=== PATIENT | male | born 1950 | race Two or more races ===

== ENCOUNTER 2017-10-03 11:11 | Emergency (ER) | payer SELFPAY ==
[2017-10-03 11:28] VITALS: TEMP 98.2; BMI 53.9
--- NOTE | 2017-10-03 12:11 | PDOC ---
History of Present Illness - General History Source: Patient Exam Limitations: No Limitations - History of Present Illness Initial Comments: 10/03/17 13:00 The patient is a 67 year old male, with a significant past medical history of hypertension and headaches, who presents to the emergency department with, one week of a headache and right sided abdominal pain. He reports stress induced intermittent right sided headache and right sided abdominal pain for one year. As per patient, yesterday his headache was unbearable, however, he was unable to come into the ED. He describes his headache to be a band-like, frontal tension headache. He reports occasional dysuria. He denies any recent fevers, chills, headache or dizziness. He denies any recent nausea, vomit, diarrhea or constipation. He denies any recent chest pain or shortness of breath. He denies any recent frequency, urgency or hematuria. Allergies: NKA Past surgical history: None reported. Social History: Nonsmoker. Denies EtOH use and recreational drug use. Primary Care Physician: Dr. Mckenzie Olsen <Marli Ruano - Last Filed: 10/03/17 13:00> <Bindu Davis - Last Filed: 10/03/17 14:16> - General Chief Complaint: Pain, Acute Stated Complaint: HEADACHE, ABD PAIN Time Seen by Provider: 10/03/17 12:11 Past History <Marli Ruano - Last Filed: 10/03/17 13:00> - Past Medical History COPD: No Diabetes: Yes HTN: Yes Hypercholesterolemia: Yes - Suicide/Smoking/Psychosocial Hx Smoking History: Current some day smoker Have you smoked in the past 12 months: Yes Information on smoking cessation initiated: No <Bindu Davis - Last Filed: 10/03/17 14:16> - Past Medical History Allergies/Adverse Reactions: Allergies Allergy/AdvReac Type Severity Reaction Status Date / Time No Known Allergies Allergy Verified 10/03/17 11:24 Review of Systems - Review of Systems Able to Perform ROS?: Yes Comments:: 10/03/17 13:00 GENERAL/CONSTITUTIONAL: No fever or chills. No weakness. HEAD, EYES, EARS, NOSE AND THROAT: No change in vision. No ear pain or discharge. No sore throat. GASTROINTESTINAL: No nausea, vomiting, diarrhea or constipation. GENITOURINARY: No dysuria, frequency, or change in urination. CARDIOVASCULAR: No chest pain or shortness of breath. RESPIRATORY: No cough, wheezing, or hemoptysis. MUSCULOSKELETAL: +Right sided abdominal pain. No joint swelling or pain. No neck or back pain. SKIN: No rash NEUROLOGIC: +Frontal headache. No vertigo, loss of consciousness, or change in strength/sensation. ENDOCRINE: No increased thirst. No abnormal weight change. HEMATOLOGIC/LYMPHATIC: No anemia, easy bleeding, or history of blood clots. ALLERGIC/IMMUNOLOGIC: No hives or skin allergy. All Other Systems: Reviewed and Negative <Marli Ruano - Last Filed: 10/03/17 13:00> *Physical Exam - Vital Signs Last Vital Signs Temp Pulse Resp BP Pulse Ox 98.2 F 61 19 112/56 96 10/03/17 11:24 10/03/17 11:24 10/03/17 11:24 10/03/17 11:24 10/03/17 11:24 - Physical Exam Comments: 10/03/17 13:01 Constitutional: Awake, alert, oriented. No acute distress. Head: Normocephalic. Atraumatic Eyes: PERRL. EOMI. Conjunctivae are not pale. ENT: Mucous membranes are moist and intact. Posterior pharynx without exudates or erythema. Uvula midline. Neck: Supple. Full ROM. No lymphadenopathy. Cardiovascular: Regular rate. Regular rhythm. S1, S2 regular. Distal pulses are 2+ and symmetric. Pulmonary/Chest: No evidence of respiratory distress. Clear to auscultation bilaterally No wheezing, rales or rhonchi. Abdominal: + Right upper quadrant tenderness. +Mild suprapubic tenderness. Soft and non-distended. No rebound, guarding or rigidity. No organomegaly. No palpable masses. Good bowel sounds. Back: No CVA tenderness. Musculoskeletal: No edema. No cyanosis. No clubbing. Full range of motion in all extremities. Nocalf tenderness. Radial/pedal pulses are intact and 2+ bilaterally Skin: Skin is warm and dry. No petechiae. No purpura. Neurological: Alert and oriented to person, place, and time. Cranial nerves II -XII are grossly intact. Normal speech. Strength is grossly symmetric. No sensory deficits. Psychiatric: Good eye contact. Normal interaction, affect and behavior. <Marli Ruano - Last Filed: 10/03/17 13:00> - Vital Signs Last Vital Signs Temp Pulse Resp BP Pulse Ox 98.2 F 61 19 112/56 96 10/03/17 11:24 10/03/17 11:24 10/03/17 11:24 10/03/17 11:24 10/03/17 11:24 <Bindu Davis - Last Filed: 10/03/17 14:16> ED Treatment Course - Medications Given in the ED: ED Medications Discontinued Medications Generic Name Dose Route Start Last Admin Trade Name Mic PRN Reason Stop Dose Admin Diphenhydramine HCl 12.5 mg 10/03/17 12:21 10/03/17 12:48 Benadryl Injection - IVPUSH 10/03/17 12:22 12.5 mg ONCE ONE Administration Ketorolac Tromethamine 30 mg 10/03/17 12:21 10/03/17 12:48 Toradol Injection - IVPUSH 10/03/17 12:22 30 mg ONCE ONE Administration Metoclopramide HCl 10 mg 10/03/17 12:21 10/03/17 12:48 Reglan Injection - IVPUSH 10/03/17 12:22 10 mg ONCE ONE Administration Sodium Chloride 1,000 ml 10/03/17 12:21 10/03/17 12:48 Normal Saline - IV 10/03/17 12:22 1,000 ml ONCE ONE Administration <Marli Ruano - Last Filed: 10/03/17 13:00> - LABORATORY CBC & Chemistry Diagram: 10/03/17 12:45 10/03/17 12:45 <Bindu Davis - Last Filed: 10/03/17 14:16> Medical Decision Making - Medical Decision Making 10/03/17 12:26 a/p: 67yo male with hazel and abd pain -states both are intermittent and worsens when he is stressed -pt states dysuria and R flank pain -also RUQ pain -no n/v/d -band like hazel -will check labs, u/s -will give ivf hydration, reglan, benadryl -will monitor and reassess 10/03/17 14:13 re-eval: ultrasound shows gb polyp lfts wnl labs reviewed with the patient headache resolved stable for d/c to home tylenol or motrin for HAZEL if it returns answered all questions. <Bindu Davis - Last Filed: 10/03/17 14:16> *DC/Admit/Observation/Transfer - Attestations Scribe Attestion: 10/03/17 13:01 Documentation prepared by Marli Ruano, acting as medical device sales representative for Bindu Davis DO. <Marli Ruano - Last Filed: 10/03/17 13:00> - Discharge Dispostion Admit: No - Attestations Physician Attestion: 10/03/17 14:16 I, Dr. Bindu Davis DO, attest that this document has been prepared under my direction and personally reviewed by me in its entirety. I further attest, that it accurately reflects all work, treatment, procedures and medical decision -making performed by me. <Bindu Davis - Last Filed: 10/03/17 14:16> Diagnosis at time of Disposition: Headache, Flank pain - Discharge Dispostion Disposition: HOME Condition at time of disposition: Stable - Referrals Referrals: Mckenzie Olsen MD [Primary Care Provider] - - Patient Instructions Printed Discharge Instructions: DI for Headache, DI for Flank Pain Additional Instructions: Please take tylenol of ibuprofen for pain. Please make an appointment to see your PMD this week. Please return to the ED with any further complaints. - Post Discharge Activity
[2017-10-03] MEDS ORDERED: KETOROLAC TROMETHAMINE 30 MG/1 ML VIAL IVPUSH ONE (12:21)
[2017-10-03] MEDS ORDERED: METOCLOPRAMIDE HCL INJECTION 10 MG/2 ML VIAL IVPUSH ONE (12:21)
[2017-10-03] MEDS ORDERED: SODIUM CHLORIDE 0.9% 1000 ML INFUS.BAG IV ONE (12:21)
[2017-10-03] MEDS ORDERED: KETOROLAC TROMETHAMINE 30 MG/1 ML VIAL ONE (12:35)
[2017-10-03] MEDS ORDERED: METOCLOPRAMIDE HCL INJECTION 10 MG/2 ML VIAL ONE (12:35)
[2017-10-03 13:23] LABS: BASO % 0.7 % (0-2.0); EOS % 1.7 % (0-4.5); HEMATOCRIT 44.4 % (35.4-49); HEMOGLOBIN 14.8 GM/dL (11.7-16.9); LYMPH % 21.9 % (8-40); MCH 29.7 pg (25.7-33.7); MCHC 33.2 g/dl (32.0-35.9); MEAN CELL VOLUME 89.3 fl (80-96); MEAN PLT VOLUME 7.9 fl (7.5-11.1); MONO % 8.3 % (3.8-10.2); NEUT % 67.4 % (42.8-82.8); PLATELET COUNT 209 K/MM3 (134-434); RBC 4.98 M/mm3 (4.00-5.60); RDW 13.8 % (11.9-15.9); WHITE BLOOD COUNT 8.3 K/mm3 (4.0-10.0)
[2017-10-03 13:32] LABS: URINE APPEARANCE CLEAR; URINE BILIRUBIN NEGATIVE (NEGATIVE); URINE BLOOD NEGATIVE (NEGATIVE); URINE COLOR LTYELLOW; URINE GLUCOSE (UA) NEGATIVE (NEGATIVE); URINE KETONE NEGATIVE (NEGATIVE); URINE LEUK ESTERASE NEGATIVE (NEGATIVE); URINE NITRITE NEGATIVE (NEGATIVE); URINE PROTEIN NEGATIVE (NEGATIVE); URINE UROBILINOGEN NEGATIVE mg/dL (0.2-1.0)
[2017-10-03 13:45] LABS: ALBUMIN 3.5 g/dl (3.4-5.0); ANION GAP 6 (8-16); BLOOD UREA NITROGEN 19 mg/dL (7-18); CALCIUM 8.6 mg/dL (8.5-10.1); CHLORIDE 104 mmol/L (98-107); CO2 30 mmol/L (21-32); CREATININE 0.9 mg/dL (0.7-1.3); GLUCOSE,RANDOM 88 mg/dL (74-106); LIPASE 115 U/L (73-393); MAGNESIUM 2.3 mg/dL (1.8-2.4); POTASSIUM 4.4 mmol/L (3.5-5.1); SGOT/AST 15 U/L (15-37); SGPT/ALT 25 U/L (12-78); SODIUM 140 mmol/L (136-145)
[2017-10-03 13:47] LABS: ALK PHOS 89 U/L (45-117); BILIRUBIN,TOTAL 0.6 mg/dL (0.2-1.0); TOT PROT 6.8 g/dl (6.4-8.2)
[2017-10-03 14:15] VITALS: BP 122/65; PULSE 63
== END 2017-10-03 14:40 | disposition home or self-care (01) ==
LOC: JER 11:11
PROC: 3E0333Z Introduction of Anti-inflammatory into Peripheral Vein, Percutaneous Approach (ICD-10-PCS; principal; 2017-10-03)
PROC: 3E033GC Introduction of Other Therapeutic Substance into Peripheral Vein, Percutaneous Approach (ICD-10-PCS; 2017-10-03)
PROC: 3E033GC Introduction of Other Therapeutic Substance into Peripheral Vein, Percutaneous Approach (ICD-10-PCS; 2017-10-03)
DX: R51 Headache (principal); I10 Essential (primary) hypertension; E11.9 Type 2 diabetes mellitus without complications; E78.00 Pure hypercholesterolemia, unspecified
CPT/HCPCS: 36415; 76705-TC; 80053; 81003; 83690; 83735; 85025; 99285-25

== ENCOUNTER 2020-06-19 11:08 | Day surgery (SDC) | payer OTHER ==
--- OUTSIDE RECORDS SUMMARY | 2020-06-03 09:09 | XMS ---
:1950 Author Organization [facility] Care Team Providers Name Role Phone Luano, Doris Unavailable Unavailable Lufrano, Doris Unavailable Unavailable Lufrano, Doris Unavailable Unavailable Lufrano, Doris Unavailable Unavailable Lufrano, Doris Unavailable Unavailable Lufrano, Doris Unavailable Unavailable Lufrano, Doris Unavailable Unavailable Innabi, Rincon Unavailable Unavailable Innabi, Rincon Unavailable Unavailable Innabi, Rincon Unavailable Unavailable Innabi, Rincon Unavailable Unavailable Innabi, Rincon Unavailable Unavailable Innabi, Rincon Unavailable Unavailable Innabi, Rincon Unavailable Unavailable Innabi, Rincon Unavailable Unavailable Innabi, Rincon Unavailable Unavailable Innabi, Rincon Unavailable Unavailable Innabi, Rincon Unavailable Unavailable Innabi, Rincon Unavailable Unavailable Innabi, Rincon Unavailable Unavailable Innabi, Rincon Unavailable Unavailable Innabi, Rincon Unavailable Unavailable Innabi, Rincon Unavailable Unavailable Re-disclosure Warning The records that you are about to access may contain information from federally- assisted alcohol or drug abuse programs. If such information is present, then the following federally mandated warning applies: This information has been disclosed to you from records protected by federal confidentiality rules (42 CFR part 2). The federal rules prohibit you from making any further disclosure of this information unless further disclosure is expressly permitted by the written consent of the person to whom it pertains or as otherwise permitted by 42 CFR part 2. A general authorization for the release of medical or other information is NOT sufficient for this purpose. The Federal rules restrict any use of the information to criminally investigate or prosecute any alcohol or drug abuse patient.The records that you are about to access may contain highly sensitive health information, the redisclosure of which is protected by Article 27-F of the [facility] Public Health law. If you continue you may haveaccess to information: Regarding HIV / AIDS; Provided by facilities licensed or operated by the [facility] Office of Mental Health; or Provided by the [facility] Office for People With Developmental Disabilities. If such information is present, then the following [facility] mandated warning applies: This information has been disclosed to you from confidential records which are protected by state law. State law prohibits you from making any further disclosure of this information without the specific written consent of the person to whom it pertains, or as otherwise permitted by law. Any unauthorized further disclosure in violation of state law may result in a fine or senior care sentence or both. A general authorization for the release of medical or other information is NOT sufficient authorization for further disclosure. Encounters Encounter Providers Location Date Indications Data Source(s ) Attender: Doris 05/27/2020 [facility] (S [facility] 12:00:00 AM EDT Medical, PC) Office Outpatient Attender: Mckenzie Miller 05/23/2019 09:05:00 AM [facility] PrettyAdmitter: Mckenzie JOHNSON [facility] InnabiReferrer: Mckenzie Olsen Medications Medication Brand Start Product Dose Route Administrative Pharmacy [facility] Indications Reaction Description Data Name Date Form Instructions Instructions Source(s) Propranolol PROPRA 05/27/ complet PROPRA NOLOL [facility] (St Hydrochlori NOLOL: 2019 ed [facility] de 20 MG [id number] 12:00: Medical , Oral Tablet 00 AM PC) PROPRANOLOL EDT :[id number] SUPREP 05/27/ LIQUID 1 complet SUPREP HEIDY L [facility] (St BOWEL PREP 2019 ed PREP KIT [facility] KIT:[id number] 12:00: Medica l, 00 AM PC) EDT Tamsulosin TAMSUL 05/27/ complet TAMSULO SIN [facility] (St hydrochlori OSIN:8 2019 ed [facility] de 0.4 MG [id number] 12:00: Medical , Oral 00 AM PC) Capsule EDT TAMSULOSIN: [id number] Dicyclomine BENTYL 05/27/ CAPSULE 60 complet CHELO TYL [facility] (St Hydrochlori :27506 2019 ed [facility] de 10 MG 3 12:00: Medical, Oral 00 AM PC) Capsule EDT [Bentyl] BENTYL:9910 63 Hydrochloro HYDROC complet HYDROC HLOROT [facility] (St thiazide HLOROT 2019 ed HIAZIDE-ALEX [facility] 12.5 MG / HIAZID 12:00: NOPRIL Medi ale, Lisinopril E-ALEX 00 AM PC) 10 MG Oral NOPRIL EDT Tablet :20642 HYDROCHLORO 5 THIAZIDE-LI SINOPRIL:[id number] Insurance Providers Payer name Policy type Policy ID Covered Covered green party's Policy P selena / Coverage green party ID relationship to Crain Inf ormation type crain HIP MEDICARE [facility] [id number] SP [id number] 01 [facility] [id number] [facility] [id number] MEDICARE 01 Problems, Conditions, and Diagnoses Code Display Name Description Problem Type Effective Dates Data Source(s) R10.9 Unspecified UNSPECIFIED Problem 05/27/2020 [facility] (St abdominal pain ABDOMINAL PAIN 12:00:00 AM EDT [facility], ) M54.5 Low back pain LOW BACK PAIN Diagnosis 05/23/2019 [facility] 09:05:00 AM EDT Medical C enter Surgeries/Procedures Procedure Description Date Indications Data Source(s) Documentation of current 05/27/2020 [facility] ([facility] (procedure) 12:00:00 AM EDT [facility]) OFFICE CONSULTATION 05/27/2020 [facility] ( [facility] NEW/ESTAB PATIENT 40 MIN 12:00:00 AM EDT Medical, PC) Results ID Date Data Source [id number] 01/12/2020 10:30:00 AM EDT [facility] Name Value Range Interpretation Description Data Sup porting Code Source(s) Document(s ) SARS [facility] CORONAVIRUS 2 RNA This lab was ordered by [facility] and reported by [facility]. Procedure Social History Code Duration Value Status Description Data Source(s ) Smoking 05/27/2020 ETOH and tobacco completed ETOH and tobacco ME [facility] (St 12:00:00 AM EDT used sometimes used sometimes [facility], denied illicit denied illicit PC) drgu used drgu used Smoking 05/27/2020 Unknown if ever completed Unknown if ever MEDG EN (St 12:00:00 AM EDT smoked smoked [facility] ) Vital Signs ID Date Data Source UNK Name Value Range Interpretation Code Description Data Source(s) Heart rate 60 /min 60 /min [facility] ([facility] , ) Inhaled oxygen 97 % 97 % [facility] ([facility], ) Body mass index 25.3 kg/m2 25.3 kg/m2 [facility] (S t (BMI) [Ratio] [facility]) Diastolic blood 60 mm[Hg] 60 mm[Hg] [facility] (S t pressure [facility]) Systolic blood 110 mm[Hg] 110 mm[Hg] [facility] ([facility]) Body weight 134 lb 134 lb [facility] ([facility]) Body height 61 in 61 in [facility] ([facility])
--- OUTSIDE RECORDS SUMMARY | 2020-06-19 11:14 | XMS ---
:1950 Author Organization [facility] Care Team Providers Name Role Phone Lufrano, Doris Unavailable Unavailable Lufrano, Doris Unavailable [...] is protected by Article 27-F of the [facility] Public Health law. If you continue you may haveaccess to information: Regarding HIV / AIDS; Provided by facilities licensed or operated by the [facility] Office of Mental Health; or Provided by the [facility] Office for People With Developmental Disabilities. If such information is present, then the following [facility] mandated warning applies: This information has been [...] law may result in a fine or care home sentence or both. A general authorization for the release of medical or other information is NOT sufficient authorization for further disclosure. Encounters Encounter Providers Location Date Indications Data Source(s ) Attender: Doris 05/27/2020 [facility] ([facility] 12:00:00 AM EDT Medical, PC) Office Outpatient Attender: Mckenzie Miller 05/23/2019 09:05:00 AM [facility] PrettyAdmitter: Mckenzie JOHNSON [facility] InnabiReferrer: Mckenzie Olsen Medications Medication Brand Start Product Dose Route Administrative Pharmacy [facility] Indications Reaction Description Data Name Date Form Instructions Instructions Source(s) Propranolol PROPRA 05/27/ complet PROPRA NOLOL [facility] (St Hydrochlori NOLOL: 2019 ed [facility] de 20 MG [id number] 12:00: Medical , Oral Tablet 00 AM PC) PROPRANOLOL EDT :[id number] SUPREP 05/27/ LIQUID 1 complet SUPREP HEIDY L [facility] (St BOWEL PREP 2019 ed PREP KIT [facility] KIT:[id number] 12:00: Medica l, 00 AM PC) EDT Tamsulosin TAMSUL 05/27/ complet TAMSULO SIN [facility] (St hydrochlori OSIN:2019 ed [facility] de 0.4 MG 13224 12:00: Medical , Oral 00 AM PC) Capsule EDT TAMSULOSIN: 755505 Dicyclomine BENTYL 05/27/ CAPSULE 60 complet CHELO TYL [facility] (St Hydrochlori :77933 2019 ed [facility] de 10 MG 3 12:00: Medical, Oral 00 AM PC) Capsule EDT [Bentyl] BENTYL:9910 63 Hydrochloro HYDROC complet HYDROC HLOROT [facility] (St thiazide HLOROT 2019 ed HIAZIDE-ALEX [facility] 12.5 MG / HIAZID 12:00: NOPRIL Medi ale, Lisinopril E-ALEX 00 AM PC) 10 MG Oral NOPRIL EDT Tablet : HYDROCHLORO 5 THIAZIDE-LI SINOPRIL:[id number] Insurance Providers Payer name Policy type Policy ID Covered Covered democrat's Policy P selena / Coverage democrat ID relationship to Crain Inf ormation type crain HIP MEDICARE VIP [id number] SP [id number] HIP MEDICARE VIP [id number] SP [id number] 01 [facility] [id number] [facility] [id number] MEDICARE 01 Problems, Conditions, and Diagnoses Code Display Name Description Problem Type Effective Dates Data Source(s) R10.9 Unspecified UNSPECIFIED Problem 05/27/2020 [facility] (St abdominal pain ABDOMINAL PAIN 12:00:00 AM EDT [facility], ) M54.5 Low back pain LOW BACK PAIN Diagnosis 05/23/2019 [facility] 09:05:00 AM EDT Medical C enter Surgeries/Procedures Procedure Description Date Indications Data Source(s) Documentation of current 05/27/2020 [facility] ([facility] (procedure) 12:00:00 AM EDT [facility], ) OFFICE CONSULTATION 05/27/2020 [facility] ( [facility] NEW/ESTAB PATIENT 40 MIN 12:00:00 AM EDT Medical, ) Results ID Date Data Source [id number] 06/15/2020 08:40:00 AM EDT [facility] Name Value Range Interpretation Description Data Sup porting Code Source(s) Document(s ) SARS [facility] coronavirus 2 RNA This lab was ordered by NEHA bravo [facility] and reported by [facility]. ID Date Data Source [id number] 01/12/2020 10:30:00 AM EDT [facility] Name Value Range Interpretation Description Data Sup porting Code Source(s) Document(s ) SARS [facility] CORONAVIRUS 2 RNA This lab was ordered by [facility] and reported by [facility]. Procedure Social History Code Duration Value Status Description Data Source(s ) Smoking 05/27/2020 ETOH and tobacco completed ETOH and tobacco ME [facility] (St 12:00:00 AM EDT used sometimes used sometimes [facility], denied illicit denied illicit ) drgu used drgu used Smoking 05/27/2020 Unknown if ever completed Unknown if ever MEDG EN (St 12:00:00 AM EDT smoked smoked [facility], ) Vital Signs ID Date Data Source UNK Name Value Range Interpretation Code Description Data Source(s) Heart rate 60 /min 60 /min [facility] ([facility] , ) Inhaled oxygen 97 % 97 % [facility] ([facility], ) Body mass index 25.3 kg/m2 25.3 kg/m2 [facility] (S t (BMI) [Ratio] [facility]) Diastolic blood 60 mm[Hg] 60 mm[Hg] [facility] (S t pressure [facility]) Systolic blood 110 mm[Hg] 110 mm[Hg] [facility] ([facility]) Body weight 134 lb 134 lb [facility] ([facility]) Body height 61 in 61 in [employer] ([facility])
[2020-06-19 11:32] VITALS: BMI 26.2
[2020-06-19 13:02] VITALS: TEMP 97.6
[2020-06-19 13:14] VITALS: BP 100/72; PULSE 83
== END 2020-06-19 13:45 | disposition home or self-care (01) ==
LOC: FASU-ENDO 11:08
PROVIDERS: ATTEND Internal Medicine Gastroenterology
PROC: 0DJD8ZZ Inspection of Lower Intestinal Tract, Via Natural or Artificial Opening Endoscopic (ICD-10-PCS; principal; 2020-06-19 12:22)
DX: Z12.11 Encounter for screening for malignant neoplasm of colon (principal); K64.1 Second degree hemorrhoids; K57.30 Diverticulosis of large intestine without perforation or abscess without bleeding

== ENCOUNTER 2021-07-03 07:40 | Emergency (ER) | payer OTHER ==
[2021-07-03 07:54] VITALS: BP 128/74; PULSE 67; TEMP 97.8; BMI 20.1
[2021-07-03] MEDS ORDERED: ACETAMINOPHEN/CAFFEINE/BUTALBITAL 1 TAB PO ONE (08:27)
[2021-07-03] MEDS ORDERED: METOCLOPRAMIDE HCL 10 MG TABLET (FP) PO ONE ×2 (08:27→08:32)
[2021-07-03] MEDS ORDERED: KETOROLAC TROMETHAMINE 30 MG/1 ML VIAL IM ONE (08:27)
[2021-07-03] MEDS ORDERED: KETOROLAC TROMETHAMINE 30 MG/1 ML VIAL ONE (08:32)
[2021-07-03] MEDS ORDERED: ACETAMINOPHEN/CAFFEINE/BUTALBITAL 1 TAB ONE (08:32)
== END 2021-07-03 11:20 | disposition home or self-care (01) ==
LOC: JER 07:40
PROC: 3E0233Z Introduction of Anti-inflammatory into Muscle, Percutaneous Approach (ICD-10-PCS; principal; 2021-07-03)
DX: R51.9 Headache, unspecified (principal); G89.29 Other chronic pain
CPT/HCPCS: 70450-TC; 99284-25

== ENCOUNTER 2024-01-20 13:35 | Emergency (ER) | payer OTHER ==
[2024-01-20 13:46] VITALS: BP 137/73; PULSE 65; RESP 18; TEMP 98.5; BMI 30.2
[2024-01-20 14:41] LABS: BASO % 0.7 % (0-2.0); EOS % 1.5 % (0-4.5); HEMOGLOBIN 15.2 GM/dL (11.7-16.9); LYMPH % 28.7 % (8-40); MCH 29.9 pg (25.7-33.7); MCHC 34.6 g/dl (32.0-35.9); MEAN CELL VOLUME 86.6 fl (80-96); MEAN PLT VOLUME 7.5 fl (7.5-11.1); MONO % 7.5 % (3.8-10.2); NEUT % 61.6 % (42.8-82.8); PLATELET COUNT 209 10^3/uL (134-434); RBC 5.08 M/mm3 (4.00-5.60); RDW 13.5 % (11.9-15.9); WHITE BLOOD COUNT 7.4 K/mm3 (4.0-10.0)
[2024-01-20 14:43] LABS: URINE APPEARANCE CLEAR; URINE BILIRUBIN NEGATIVE (NEGATIVE); URINE COLOR YELLOW; URINE GLUCOSE (UA) NEGATIVE (NEGATIVE); URINE KETONE NEGATIVE (NEGATIVE); URINE LEUK ESTERASE NEGATIVE (NEGATIVE); URINE NITRITE NEGATIVE (NEGATIVE); URINE PROTEIN NEGATIVE (NEGATIVE); URINE UROBILINOGEN 0.2 mg/dL (0.2-1.0)
[2024-01-20] MEDS: SODIUM CHLORIDE 0.9% 500 ML INFUS.BAG IV ONE (14:45)
[2024-01-20] MEDS: morphine CARPU-JECT 2 MG/1 ML DISP.SYRIN IVPUSH ONE (14:58)
[2024-01-20 15:05] LABS: POTASSIUM 4.3 mmol/L (3.5-5.1)
[2024-01-20 15:07] LABS: ALBUMIN 3.6 g/dl (3.4-5.0); BLOOD UREA NITROGEN 20.6 mg/dL (7-18); CALCIUM 8.5 mg/dL (8.5-10.1)
[2024-01-20 15:10] LABS: CREATININE 1.1 mg/dL (0.55-1.3)
[2024-01-20 15:12] LABS: BILIRUBIN,TOTAL 0.5 mg/dL (0.2-1); TOT PROT 6.9 g/dl (6.4-8.2)
[2024-01-20] MEDS ORDERED: KETOROLAC TROMETHAMINE 30 MG/1 ML VIAL IVPUSH ONE (16:45)
[2024-01-20] MEDS ORDERED: KETOROLAC TROMETHAMINE 15 MG/ML VIAL ONE (17:11)
[2024-01-20] MEDS ORDERED: LIDOCAINE 4% PATCH TP ONE (17:11)
[2024-01-20] MEDS: LIDOCAINE 4% PATCH TP ONE (17:15)
[2024-01-20] MEDS: KETOROLAC TROMETHAMINE 15 MG/ML VIAL IVPUSH ONE (17:15)
[2024-01-20] MEDS ORDERED: LIDOCAINE PATCH REMOVAL MC SCH (22:00)
== END 2024-01-20 18:00 | disposition home or self-care (01) ==
LOC: JERFT 13:35
PROC: 3E033NZ Introduction of Analgesics, Hypnotics, Sedatives into Peripheral Vein, Percutaneous Approach (ICD-10-PCS; principal; 2024-01-20)
PROC: 3E0333Z Introduction of Anti-inflammatory into Peripheral Vein, Percutaneous Approach (ICD-10-PCS; 2024-01-20)
DX: M54.50 Low back pain, unspecified (principal); R10.32 Left lower quadrant pain; R30.0 Dysuria
CPT/HCPCS: 36415; 72100-TC-FY; 74177-TC; 80053; 81003; 85025; 87086; 99285-25; Q9967